=== PATIENT | female | born 1990 | race Caucasian/White ===

== ENCOUNTER 2019-09-07 12:35 | Inpatient (IN) ==
[2019-09-07 13:25] LABS: Basophils % 0.4 %; Eosinophils # 0.1 K/mcL (0.0-0.6); Hematocrit 38.7 % (35.3-44.9); Hemoglobin 13.1 g/dL (11.5-15.4); Immature Granulocytes % 0.4 % (0-4); Lymphocytes # 3.5 K/mcL (0.6-4.6); Lymphocytes % 36.8 %; Mean Corpuscular HGB Conc 33.9 g/dL (31.6-35.5); Mean Corpuscular Hemoglobin 29.7 pg (28.0-33.3); Mean Corpuscular Volume 87.8 fL (83.0-100.0); Mean Platelet Volume 11.9 fL (9.4-12.4); Monocytes # 0.5 K/mcL (0.0-1.3); Monocytes % 4.8 %; Neutrophils # 5.4 K/mcL (1.6-8.9); Platelet Count 225 K/mcL (140-400); Red Blood Count 4.41 M/mcL (3.82-4.97); Red Cell Distribution Width 13.1 % (11.5-14.5); Segmented Neutrophils % 56.6 %; White Blood Count 9.6 K/mcL (4.3-11.1)
[2019-09-07] MEDS: *HR* Buprenorphine HCl 8 MG TAB.SUBL SL SCH (13:46)
[2019-09-07 14:21] LABS: Acetaminophen < 10 mcg/mL (10-20); BUN/Creatinine Ratio 21 (6-26); Blood Urea Nitrogen 15 mg/dL (6-20); Calcium 9.4 mg/dL (8.6-10.3); Carbon Dioxide 20 mEq/L (23-29); Chloride 106 mEq/L (98-107); Ethanol < 10 mg/dL (Less than 10); Glucose 93 mg/dL (70-105); Osmolality,Calculated 281 (280-300); Potassium 3.9 mEq/L (3.5-5.1); Salicylate < 2.5 mg/dL (15.0-30.0); Sodium 135 mEq/L (136-145); eGFR For African Americans > 60 (> 60); eGFR For Non-African Americans > 60 (> 60)
[2019-09-07] MEDS: Nicotine 21 MG PATCH.TD24 TD SCH (15:06)
[2019-09-07 15:07] LABS: Bilirubin,Urine Small (Negative); Blood,Urine Moderate (Negative); Clarity,Urine Cloudy (Clear); Color,Urine Yellow (Yellow); Glucose,Urine (UA) Normal (Normal); Ketones,Urine Negative (Negative); Leukocyte Esterase,Urine Small (Negative); Nitrite,Urine Positive (Negative); Protein,Urine 30 mg/dL (Neg-Trace); Specific Gravity,Urine 1.017 (1.010-1.025); Urobilinogen,Urine Normal (Normal)
[2019-09-07 15:10] LABS: Bacteria,Urine Many per hpf (None-Few); RBC,Urine 0-3 per hpf (0-3); Squamous Epithelial Cell,Urine Many per lpf (None-Few)
[2019-09-07 15:23] LABS: Amphetamine Screen,Urine Negative ng/mL (Cutoff=1000); Barbiturate Screen,Urine Negative ng/mL (Cutoff=200); Benzodiazepines Screen,Urine Positive ng/mL (Cutoff=200); Cannabinoid Screen,Urine Positive ng/mL (Cutoff = 50); Cocaine Screen,Urine Negative ng/mL (Cutoff= 300); Opiate Screen,Urine Negative ng/mL (Cutoff=300); Phencyclidine Screen,Urine Negative ng/mL (Cutoff=25)
[2019-09-07 15:34] LABS: Renal Epithelial Cells,Urine Moderate per hpf (None-Few); Transitional Epi Cells,Urine Moderate per hpf (None-Few)
[2019-09-07] MEDS ORDERED: *HR* LORazepam 1 MG TABLET PO PRN (16:33)
[2019-09-07] MEDS ORDERED: Mag Hydrox/Al Hydrox/Simeth 30 ML UDC PO PRN (16:33)
[2019-09-07] MEDS ORDERED: MOM Conc 10 ML UD.LIQ PO PRN (16:33)
[2019-09-07] MEDS ORDERED: *HR* LORazepam 2 MG/ML VIAL IM PRN (16:33)
[2019-09-07] MEDS ORDERED: Haloperidol Lactate 5 MG/ML VIAL IM PRN (16:33)
[2019-09-07] MEDS ORDERED: haloperidoL 5 MG TABLET PO PRN (16:33)
[2019-09-07] MEDS: hydrOXYzine pamoate 25 MG CAPSULE PO PRN (21:04)
[2019-09-07] MEDS: Sulfamethoxazole/Trimeth DS 1 EACH TABLET PO SCH (21:04)
[2019-09-07] MEDS: traZODone 50 MG TABLET PO PRN (21:04)
[2019-09-08] MEDS: *HR* Buprenorphine HCl 8 MG TAB.SUBL SL SCH (09:26)
[2019-09-08] MEDS: Sulfamethoxazole/Trimeth DS 1 EACH TABLET PO SCH ×2 (09:26→20:17)
[2019-09-08] MEDS: Nicotine 21 MG PATCH.TD24 TD SCH (09:26)
[2019-09-08] MEDS: hydrOXYzine pamoate 25 MG CAPSULE PO PRN (20:17)
[2019-09-08] MEDS: traZODone 50 MG TABLET PO PRN (20:17)
[2019-09-08] MEDS: risperiDONE 1 MG TABLET PO SCH (20:17)
[2019-09-09] MEDS: Sulfamethoxazole/Trimeth DS 1 EACH TABLET PO SCH ×2 (08:51→21:18)
[2019-09-09] MEDS: risperiDONE 1 MG TABLET PO SCH ×2 (08:51→21:18)
[2019-09-09] MEDS: Ibuprofen 400 MG TABLET PO PRN ×2 (08:51→15:23)
[2019-09-09] MEDS: *HR* Buprenorphine HCl 8 MG TAB.SUBL SL SCH (08:51)
[2019-09-09] MEDS: Nicotine 21 MG PATCH.TD24 TD SCH (08:52)
[2019-09-09] MEDS: hydrOXYzine pamoate 25 MG CAPSULE PO PRN (21:18)
[2019-09-09] MEDS: traZODone 50 MG TABLET PO PRN (21:18)
[2019-09-10] MEDS: *HR* Buprenorphine HCl 8 MG TAB.SUBL SL SCH (08:46)
[2019-09-10] MEDS: risperiDONE 1 MG TABLET PO SCH (08:46)
[2019-09-10] MEDS: Sulfamethoxazole/Trimeth DS 1 EACH TABLET PO SCH (08:46)
[2019-09-10] MEDS: Nicotine 21 MG PATCH.TD24 TD SCH (08:46)
[2019-09-10 08:48] LABS: Chol/HDL Ratio 3.3 (0-4.9)
[2019-09-10 09:10] VITALS: BP 119/84
[2019-09-10 09:13] LABS: Estimated Average Glucose 108 mg/dl
== END 2019-09-10 11:20 | disposition home or self-care (01) | DRG 751 ==
LOC: EMEROOARM 12:35 → 1ANU 16:26
PROVIDERS: ADMIT Psychiatry & Neurology Psychiatry; ATTEND Psychiatry & Neurology Psychiatry

== ENCOUNTER 2019-12-17 00:50 | Observation (INO) ==
[2019-12-17] MEDS ORDERED: Naloxone 0.4 MG/ML INJ IVP PRN (03:28)
[2019-12-17] MEDS ORDERED: Ondansetron 4 MG/2 ML VIAL IVP PRN (03:28)
[2019-12-17 04:24] LABS: Alanine Aminotransferase 39 Units/L (7-52); Albumin 4.2 g/dL (3.5-5.7); Albumin/Globulin Ratio 1.6 (1.1-2.2); Alkaline Phosphatase 49 Units/L (34-104); Aspartate Amino Transferase 29 Units/L (13-39); BUN/Creatinine Ratio 28 (6-26); Bilirubin,Total 0.6 mg/dL (0.3-1.0); Blood Urea Nitrogen 19 mg/dL (6-20); Calcium 9.6 mg/dL (8.6-10.3); Carbon Dioxide 23 mEq/L (23-29); Chloride 100 mEq/L (98-107); Chol/HDL Ratio 2.5 (0-4.9); Cholesterol 132 mg/dL (< 200); Globulin 2.7 g/dL (2.4-3.5); Glucose 142 mg/dL (70-105); HDL Cholesterol 53 mg/dL (40-59); LDL Cholesterol,Calculated 67 mg/dL (< 100); Magnesium 1.9 mg/dL (1.6-2.6); Osmolality,Calculated 281 (280-300); Phosphorous 4.8 mg/dL (2.7-4.5); Potassium 4.6 mEq/L (3.5-5.1); Sodium 133 mEq/L (136-145); Total Protein 6.9 g/dL (6.4-8.9); Triglycerides 62 mg/dL (< 150); eGFR For African Americans > 60 (> 60); eGFR For Non-African Americans > 60 (> 60)
[2019-12-17 04:39] LABS: Basophils # 0.1 K/mcL (0.0-0.2); Basophils % 0.2 %; Hematocrit 45.9 % (35.3-44.9); Hemoglobin 15.2 g/dL (11.5-15.4); Immature Granulocytes % 0.5 % (0-4); Lymphocytes # 1.5 K/mcL (0.6-4.6); Lymphocytes % 6.3 %; Mean Corpuscular HGB Conc 33.1 g/dL (31.6-35.5); Mean Corpuscular Hemoglobin 28.7 pg (28.0-33.3); Mean Corpuscular Volume 86.6 fL (83.0-100.0); Mean Platelet Volume 10.9 fL (9.4-12.4); Monocytes % 8.3 %; Platelet Count 295 K/mcL (140-400); Red Cell Distribution Width 12.6 % (11.5-14.5); Segmented Neutrophils % 84.7 %; White Blood Count 23.9 K/mcL (4.3-11.1)
[2019-12-17 04:51] LABS: Neutrophils # 20.2 K/mcL (1.6-8.9)
[2019-12-17] MEDS: Ketorolac 30 MG/ML VIAL IVP PRN ×3 (05:39→23:39)
[2019-12-17] MEDS: 0.9 % Sodium Chloride 1,000 ML IVC SCH ×2 (06:43→14:08)
[2019-12-17 07:08] LABS: Hepatitis B Surface Antigen Nonreactive (Nonreactive)
[2019-12-17 07:37] LABS: Hepatitis B Core IgM Nonreactive (Nonreactive)
[2019-12-17 07:39] LABS: Hepatitis A Antibody IgM Nonreactive (Nonreactive)
[2019-12-17] MEDS: Piperacillin/Tazobactam 3.375 GM in 0.9 % Sodium Chloride Mini Bag 100 ML IVPB SCH ×2 (08:40→16:55)
[2019-12-17] MEDS: MetroNIDAZOLE 500 MG/100 ML 500 MG/100 ML BAG IVPB SCH ×3 (08:40→23:36)
[2019-12-17] MEDS ORDERED: hydrOXYzine pamoate 25 MG CAPSULE PO PRN (10:29)
[2019-12-17] MEDS ORDERED: Famotidine 20 MG TABLET PO PRN (10:29)
[2019-12-17 11:06] LABS: Hepatitis C Virus Antibody Reactive (Nonreactive)
[2019-12-17] MEDS: risperiDONE 1 MG TABLET PO SCH ×2 (13:40→21:46)
[2019-12-17 16:19] LABS: Bacteria,Urine Few per hpf (None-Few); Bilirubin,Urine Negative (Negative); Blood,Urine Negative (Negative); Clarity,Urine Clear (Clear); Color,Urine Yellow (Yellow); Glucose,Urine (UA) Normal (Normal); Ketones,Urine Negative (Negative); Leukocyte Esterase,Urine Large (Negative); Mucus,Urine Few per lpf (None-Few); Nitrite,Urine Negative (Negative); Protein,Urine Negative (Neg-Trace); Specific Gravity,Urine 1.022 (1.010-1.025); Squamous Epithelial Cell,Urine Moderate per hpf (None-Few); Trichomonas,Urine Present (None Seen); Urobilinogen,Urine Normal (Normal); WBC,Urine 30-50 per hpf (0-3)
[2019-12-17] MEDS: Nicotine 21 MG PATCH.TD24 TD SCH (19:03)
[2019-12-17] MEDS ORDERED: traZODone 50 MG TABLET PO PRN (21:00)
[2019-12-17] MEDS: Acyclovir 200 MG CAPSULE PO SCH (22:04)
[2019-12-17 22:33] LABS: Amphetamine Screen,Urine Negative ng/mL (Cutoff=1000); Barbiturate Screen,Urine Negative ng/mL (Cutoff=200); Benzodiazepines Screen,Urine Negative ng/mL (Cutoff=200); Cannabinoid Screen,Urine Positive ng/mL (Cutoff = 50); Cocaine Screen,Urine Negative ng/mL (Cutoff= 300); Opiate Screen,Urine Negative ng/mL (Cutoff=300); Phencyclidine Screen,Urine Negative ng/mL (Cutoff=25)
[2019-12-17 23:21] LABS: Adenovirus F 40/41 PCR Not detected (Not detect); Astrovirus PCR Not detected (Not detect); C.difficile Toxin A/B Gene PCR Not detected (Not detect); Campylobacter by PCR Not detected (Not detect); Cryptosporidium by PCR Not detected (Not detect); Cyclospora cayetanensis PCR Not detected (Not detect); E. coli O157 by PCR Not detected (Not detect); Entamoeba histolytica PCR Not detected (Not detect); Enteroaggregative E.coli(EAEC) Not detected (Not detect); Enteropathogenic E.coli(EPEC) Not detected (Not detect); Enterotoxigenic E.coli (ETEC) DETECTED (Not detect); Giardia lamblia PCR Not detected (Not detect); Norovirus GI/GII PCR Not detected (Not detect); Plesiomonas shigelloides PCR Not detected (Not detect); Rotavirus A PCR Not detected (Not detect); Salmonella PCR Not detected (Not detect); Sapovirus PCR Not detected (Not detect); Shig/EnteroinvasiveE coli EIEC Not detected (Not detect); Shigalike tox-prod E coli STEC Not detected (Not detect); Vibrio PCR Not detected (Not detect); Vibrio cholerae PCR Not detected (Not detect); Yersinia enterocolitica PCR Not detected (Not detect)
[2019-12-18] MEDS: Piperacillin/Tazobactam 3.375 GM in 0.9 % Sodium Chloride Mini Bag 100 ML IVPB SCH ×2 (00:38→08:36)
[2019-12-18 05:42] LABS: Basophils % 0.4 %; Eosinophils # 0.2 K/mcL (0.0-0.6); Eosinophils % 2.3 %; Hematocrit 35.7 % (35.3-44.9); Immature Granulocytes % 0.4 % (0-4); Lymphocytes # 2.9 K/mcL (0.6-4.6); Lymphocytes % 35.8 %; Mean Corpuscular HGB Conc 32.8 g/dL (31.6-35.5); Mean Corpuscular Hemoglobin 29.5 pg (28.0-33.3); Mean Corpuscular Volume 89.9 fL (83.0-100.0); Mean Platelet Volume 10.3 fL (9.4-12.4); Monocytes # 0.7 K/mcL (0.0-1.3); Monocytes % 8.8 %; Neutrophils # 4.3 K/mcL (1.6-8.9); Platelet Count 217 K/mcL (140-400); Red Blood Count 3.97 M/mcL (3.82-4.97); Red Cell Distribution Width 12.6 % (11.5-14.5); Segmented Neutrophils % 52.3 %
[2019-12-18 05:43] LABS: Hemoglobin 11.7 g/dL (11.5-15.4); White Blood Count 8.2 K/mcL (4.3-11.1)
[2019-12-18 05:59] LABS: Alanine Aminotransferase 24 Units/L (7-52); Albumin/Globulin Ratio 1.3 (1.1-2.2); Alkaline Phosphatase 32 Units/L (34-104); Aspartate Amino Transferase 21 Units/L (13-39); BUN/Creatinine Ratio 24 (6-26); Bilirubin,Total 0.4 mg/dL (0.3-1.0); Blood Urea Nitrogen 19 mg/dL (6-20); Calcium 8.6 mg/dL (8.6-10.3); Carbon Dioxide 29 mEq/L (23-29); Chloride 105 mEq/L (98-107); Globulin 2.3 g/dL (2.4-3.5); Glucose 93 mg/dL (70-105); Osmolality,Calculated 286 (280-300); Potassium 4.6 mEq/L (3.5-5.1); Sodium 137 mEq/L (136-145); Total Protein 5.3 g/dL (6.4-8.9); eGFR For African Americans > 60 (> 60); eGFR For Non-African Americans > 60 (> 60)
[2019-12-18 06:34] VITALS: BP 108/74
[2019-12-18] MEDS: Acyclovir 200 MG CAPSULE PO SCH (08:37)
[2019-12-18] MEDS: risperiDONE 1 MG TABLET PO SCH (08:37)
[2019-12-18] MEDS: Nicotine 21 MG PATCH.TD24 TD SCH (08:37)
[2019-12-18] MEDS: MetroNIDAZOLE 500 MG/100 ML 500 MG/100 ML BAG IVPB SCH (08:41)
[2019-12-18 08:53] LABS: INR 1.1; Prothrombin Time 12.1 Seconds (9.4-12.1)
[2019-12-18] MEDS ORDERED: (Buprenorphine Hcl/Naloxone Hcl [Buprenorphin-Naloxon) SL SCH (09:00)
[2019-12-18] MEDS: Ketorolac 30 MG/ML VIAL IVP PRN (12:26)
== END 2019-12-18 14:16 | disposition home or self-care (01) ==
LOC: 3ANU → SUATTDRO 02:34
PROVIDERS: ADMIT Internal Medicine; ATTEND Family Medicine